=== PATIENT | female | born 1975 | race Caucasian/White ===

== ENCOUNTER 2016-07-13 11:58 | Day surgery (SDC) | payer MEDICARE, MEDICAID ==
[~2016-07-13 11:58] MED LIST: BUPIVACAINE HCL 0.5%/EPI 1:200000 INJ 1.8 ML CARTRIDGE ONE; LACTATED RINGERS 1000 ML IV PRN; LIDOCAINE 0.5% INJ-PF (5 MG/ML) 50 ML SDV SUBCUT PRN; LIDOCAINE 2% INJ-PF (20 MG/ML) 10 ML AMPUL ONE; LIDOCAINE 2%/EPINEPHRINE INJ 1.7 ML CARTRIDGE ONE; ONDANSETRON HCL INJ/PF 4 MG/2 ML SDV ONE; SUCCINYLCHOLINE CHLORIDE INJ 200 MG/10 ML VIAL ONE
[2016-07-13] MEDS ORDERED: LIDOCAINE 2%/EPINEPHRINE INJ 1.7 ML CARTRIDGE ONE (12:43)
[2016-07-13] MEDS ORDERED: FENTANYL CITRATE INJ/PF 250 MCG/5 ML AMPULE ONE (13:22)
[2016-07-13] MEDS ORDERED: ACETAMINOPHEN 100 ML IV ONE (13:22)
[2016-07-13] MEDS ORDERED: MIDAZOLAM 2 MG/2 ML INJ ONE (13:22)
[2016-07-13] MEDS ORDERED: PROPOFOL INJ 200 MG/20 ML VIAL IV ONE (13:22)
[2016-07-13 13:31] LABS: PROTHROMBIN TIME 14.6 SEC (11.4-15.4)
[2016-07-13 13:32] LABS: PARTIAL THROMBOPLASTIN TIME 25.9 SEC (23.5-35.8)
[2016-07-13] MEDS ORDERED: MEPERIDINE HCL/PF INJ 25 MG/1 ML DISP.SYRIN IV PRN (14:18)
[2016-07-13] MEDS ORDERED: PROMETHAZINE HCL INJ 25 MG/1 ML VIAL IV PRN ×2 (14:18)
[2016-07-13] MEDS ORDERED: DIPHENHYDRAMINE HCL 50 MG/ML VIAL IV PRN (14:18)
[2016-07-13] MEDS ORDERED: FENTANYL CITRATE INJ/PF 100 MCG/2 ML AMPUL IV PRN ×3 (14:18)
[2016-07-13] MEDS ORDERED: OXYCODONE-ACETAMINOPHEN 5-325 MG TABLET PO PRN ×3 (14:18→15:45)
[2016-07-13] MEDS ORDERED: ONDANSETRON HCL INJ/PF 4 MG/2 ML SDV IV PRN (14:18)
[2016-07-13] MEDS ORDERED: MORPHINE SULFATE 10 MG/ML INJ IV PRN (14:18)
--- NOTE | 2016-07-13 14:57 | Operative Report ---
Operative Report DATE OF SURGERY: 07/13/16 PREOPERATIVE DIAGNOSIS: Dental caries POSTOPERATIVE DIAGNOSIS: Dental caries OPERATION: Surgical removal of teeth numbers 4, 6, 7, 8, 9, 10, 11, 14, 18, 19, 20, 21, 22, 23, 24, 25, 26, 27, 28 and 29 with alveoloplasties of all 4 quadrants SURGEON: CIRILO GASCA ANESTHESIA: GA TISSUE REMOVED OR ALTERED: Teeth which were discarded COMPLICATIONS: None ESTIMATED BLOOD LOSS: 50 mL INTRAOPERATIVE FINDINGS: Grossly decayed and nonrestorable teeth PROCEDURE: The patient was brought into operating room #3 and placed on the operating room table in supine position. General anesthesia was induced via a peripheral IV and continued utilizing nasal endotracheal intubation through the right nares. The patient was then prepped and draped in the usual fashion for an intraoral procedure. The oral cavity and oropharynx were suctioned and a moistened oropharyngeal throat pack was placed. A total of 5 carpules of 2% lidocaine with 1:100,000 epinephrine and 2 carpules of 1/2% Marcaine with 1:200,000 epinephrine were delivered to the planned surgical sites via both infiltration and nerve block. Full-thickness mucoperiosteal flaps were then developed via envelope incisions. Ostectomy was completed as needed. Teeth were delivered using elevators and forceps. Tooth number 19 was sectioned. Alveoloplasties were completed using rongeurs, bone files and a round bur on a rotating osteotome. The sockets were curetted free of any debris and irrigated with normal saline solution. The mandible was intact postoperatively, there was no sinus communication noted, a bite block was used throughout the procedure and the nerves were not seen. The flaps were reapproximated and sutured with 4-0 chromic gut suture. The oral cavity was irrigated and suctioned and found to be free of debris. The throat pack was removed. The oropharynx was suctioned. Gauze packs were placed bilaterally to aid in continued hemostasis. The patient was awakened from general anesthesia, extubated in the operating room and taken recovery room and spontaneous breathing fashion.
[2016-07-13 17:19] VITALS: BP 110/63
== END 2016-07-13 17:20 | disposition home or self-care (01) ==
LOC: OROUT 11:58
PROVIDERS: ATTEND Dentist Oral and Maxillofacial Surgery
PROC: 0NQTXZZ Repair Right Mandible, External Approach (ICD-10-PCS; 2016-07-13)
PROC: 0NQRXZZ Repair Maxilla, External Approach (ICD-10-PCS; 2016-07-13)
PROC: 0NQSXZZ (ICD-10-PCS; 2016-07-13)
PROC: 0CDXXZ1 Extraction of Lower Tooth, Multiple, External Approach (ICD-10-PCS; 2016-07-13)
PROC: 0CDWXZ1 Extraction of Upper Tooth, Multiple, External Approach (ICD-10-PCS; 2016-07-13)
PROC: 0NQVXZZ Repair Left Mandible, External Approach (ICD-10-PCS; principal; 2016-07-13 13:30)
DX: K02.9 Dental caries, unspecified (principal); M19.90 Unspecified osteoarthritis, unspecified site; F17.210 Nicotine dependence, cigarettes, uncomplicated; E89.0 Postprocedural hypothyroidism; Z79.01 Long term (current) use of anticoagulants; Z85.3 Personal history of malignant neoplasm of breast; Z85.830 Personal history of malignant neoplasm of bone; Z88.0 Allergy status to penicillin; Z79.899 Other long term (current) drug therapy
CPT/HCPCS: 41899; 41874 ×4; 36415; 84132; 85610; 85730; 81025; J2250; J3490 ×2; J3010; A9270; J0330; J2405; J2704; J0131; 170